=== PATIENT | male | born 1980 | race Caucasian/White ===

== ENCOUNTER 2021-01-03 23:30 | Emergency (ER) | payer OTHER ==
[~2021-01-03] VITALS: Ht 170.2 cm; Wt 81.6 kg
[2021-01-03 23:35] VITALS: BP_SYST 136
--- NOTE | 2021-01-03 23:47 | NUR ---
Patient to ER bed 03 to gown for evaluation. Side rails up.
--- NOTE | 2021-01-03 23:50 | NUR ---
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
--- NOTE | 2021-01-03 23:56 | NUR ---
Dr Cat evaluating patient at bedside
[2021-01-04] MEDS ORDERED: IBUP800T54 PO (00:03)
[2021-01-04] MEDS ORDERED: NEU300 PO (00:03)
[2021-01-04 00:52] VITALS: BP_SYST 136
--- NOTE | 2021-01-04 00:53 | NUR ---
Patient given written and verbal discharge instructions and verbalizes understanding. DR. CALVIN CAPONE MD discussed with patient the results and treatment provided. Patient in stable condition. ID arm band removed. Rx of MOTRIN, GABAPENTIN given. Patient educated on pain management and to follow up with PMD. Pain Scale 0/10. Opportunity for questions provided and answered. Medication side effect fact sheet provided.
== END 2021-01-04 00:52 | disposition home or self-care (01) ==
LOC: SED 23:30
DX: G62.9 Polyneuropathy, unspecified (principal); M79.641 Pain in right hand; Z79.899 Other long term (current) drug therapy
CPT/HCPCS: 99283